=== PATIENT | female | born 1960 | race Caucasian/White ===

== ENCOUNTER 2018-02-26 05:35 | Day surgery (SDC) | payer BC, OTHER ==
[~2018-02-26] VITALS: Ht 154.9 cm; Wt 113.4 kg
--- NOTE | ~2018-02-26 | O ---
[facility] [place] [address] OPERATIVE REPORT Name: JOSEFA DUQUE Room #: 150-4 [facility] M.R.#: [id number] Admission: 02/26/18 Attend Phys: Julio Hernandez MD Discharge: Date of : 58 Report #: [id number] THIS REPORT FOR: //name// CC: Melody Hernandez DATE OF SERVICE: 02/26/2018 PNEUMATIC SYSTEMS OPERATOR: None. PREOPERATIVE DIAGNOSIS: Bilateral upper lid ptosis with superior visual field defects both eyes. POSTOPERATIVE DIAGNOSIS: Bilateral upper lid ptosis with superior visual field defects both eyes. OPERATION PERFORMED: Bilateral upper lid functional ptosis repair. PNEUMATIC SYSTEMS OPERATOR: None. ANESTHESIA: Local with IV sedation. COMPLICATIONS: None. INDICATIONS FOR PROCEDURE: This patient has bilateral upper lid ptosis with superior visual field loss both eyes. Visual field testing demonstrates dense superior visual defects. Retesting with the upper lid elevated shows an improvement in visual field loss of over 30% and in excess of 12 degrees. The current procedure is being undertaken in order to improve the patient's visual function. Informed consent was obtained to include but not limited to the risk of loss of vision, bleeding, infection, scarring, failure to improve the problem and need for further surgery, such as adjustment of lid height. DESCRIPTION OF PROCEDURE: The patient was taken to the operating room, where 2% Xylocaine with epinephrine mixed with equal parts of 0.75% Marcaine with Wydase was administered transcutaneously to each upper lid. The patient was then prepped and draped in the usual sterile fashion. An upper lid crease incision was then made bilaterally and the dissection was [facility] [address] [place] [address] OPERATIVE REPORT Name: JOSEFA DUQUE Room #: 150-4 [facility] M..#: [id number] Admission: 02/26/18 Attend Phys: Julio Hernandez MD Discharge: Date of : 58 Report #: [id number] carried down until the orbital septum was identified. The orbital septum was then cleared and the preaponeurotic fat identified. The levator aponeurosis was then disinserted from the anterior surface of the tarsal plate and dissected free in the avascular Marie's muscle plane. The aponeurosis was then advanced and reattached to the anterior surface of the tarsal plate with interrupted mattress 6-0 Novafil sutures on each side, adjusting for height and contour. The redundant aponeurosis was then amputated. The incision was then closed with multiple interrupted 6-0 chromic sutures that were used to recreate an upper lid crease. The skin was closed with a running 6-0 plain gut suture. The wound was then cleaned and dressed with ophthalmic antibiotic ointment followed by a Telfa pad. The patient was transported to the recovery area, having tolerated the procedure well with no anesthesia or operative complications being noted. By: [id number] Julio Hernandez MD /yazan
[~2018-02-26 05:35] MED LIST: ALBUTEROL2.5 MG/0.5 INH; ASPIRIN EC325 M1 PO; ASPIRIN325 PO; ATORVASTATIN CA40 MG PO; BUSPIRONE HCL15 MG PO; CALCIUM 500 +1 EAC5 PO; COLACE100 MG PO; COPAXONE40 MG/1 ML SQ; DIOVAN 80 MG TA80 M1 PO; DIOVAN160 MG PO; DIOVAN320 MG PO; FELDENE20 MG PO; FENTANYL PA25 MCG/HR TRANSDERM; GABAPENTIN 100100 MG PO; GLATOPA40 MG/1 ML SUBQ; HYDROXYCHLOROQ200 M1 PO; LASIX 80 MG TAB80 MG PO; LIORESAL 10 MG10 MG PO; LITE COAT ASPI325 MG PO; LYRICA 75 MG CA75 MG PO; MIRALAX17 GM PO; NITROGLYCERIN0.4 MG SUBLING; ONDANSETRON HCL4 M2 SUBLING; OTEZLA30 MG PO; PERCOCET 10-321 EACH PO; PERCOCET 7.5-31 EACH PO; PHENERGAN12.5 M2 RECTAL; POTASSIUM20 PO; PROAIR HFA8.5 GM INH; REGLAN 10 MG TA10 MG PO; SERTRALINE HCL50 MG PO; TRAZODONE 150150 M1 PO; TYLENOL325 MG PO; VITAMIN D 5050000 I1 PO; VITAMIN D2000 UNIT PO; XANAX1 MG PO; XARELTO10 MG PO; ZYRTEC-D TABLE1 EAC1 PO
[2018-02-26 07:00] VITALS: BP 104/50
== END 2018-02-26 08:35 | disposition home or self-care (01) ==
LOC: OR 05:35 → TBA 05:35 → OR 07:44
DX: H02.402 Unspecified ptosis of left eyelid (principal); H53.462 Homonymous bilateral field defects, left side; H53.461 Homonymous bilateral field defects, right side; I11.0 Hypertensive heart disease with heart failure; I50.9 Heart failure, unspecified; E78.00 Pure hypercholesterolemia, unspecified; J45.909 Unspecified asthma, uncomplicated; G35 Multiple sclerosis; F32.9 Major depressive disorder, single episode, unspecified; F41.9 Anxiety disorder, unspecified; G47.33 Obstructive sleep apnea (adult) (pediatric); K21.9 Gastro-esophageal reflux disease without esophagitis; E11.9 Type 2 diabetes mellitus without complications; Z90.49 Acquired absence of other specified parts of digestive tract; Z90.710 Acquired absence of both cervix and uterus; Z87.891 Personal history of nicotine dependence; Z98.890 Other specified postprocedural states; Z96.652 Presence of left artificial knee joint; D64.9 Anemia, unspecified
CPT/HCPCS: 50010; 50101; 50386; 50398; 51636; 56528; 56531; 70005